=== PATIENT | male | born 1955 | race African-American/Black ===

== ENCOUNTER 2016-09-27 19:52 | Emergency (ER) | payer OTHER ==
[~2016-09-27] VITALS: Ht 167.6 cm; Wt 96.4 kg
[2016-09-27 20:30] VITALS: BP 125/76
== END 2016-09-27 23:46 | disposition left against medical advice (07) ==
LOC: EMS 19:54
DX: K59.00 Constipation, unspecified (principal); Z53.21 Procedure and treatment not carried out due to patient leaving prior to being seen by health care provider